=== PATIENT | female | born 1940 | race Caucasian/White ===

== ENCOUNTER 2016-09-07 11:02 | Emergency (ER) | payer MEDICARE ==
[~2016-09-07] VITALS: Ht 165.1 cm; Wt 62.0 kg
[2016-09-07] MEDS ORDERED: SODIUM CHLORIDE 0.9% 1,000 ML IV ONE (11:45)
[2016-09-07] MEDS ORDERED: SODIUM CHLORIDE FLUSH 10ML SYR IVF ONE (12:00)
[2016-09-07 12:18] LABS: BLOOD UREA NITROGEN 17 mg/dL (7-18)
[2016-09-07 12:25] LABS: ASPARTATE AMINO TRANSFERASE 27 U/L (15-37)
[2016-09-07 12:27] LABS: IS PT STATUS REG ER OR PRE ER? YES
[2016-09-07 12:52] VITALS: BP 132/64
== END 2016-09-07 13:32 | disposition home or self-care (01) ==
LOC: ED 13:10
DX: I95.81 Postprocedural hypotension (principal); I10 Essential (primary) hypertension
CPT/HCPCS: 36415; 71010; 80053; 84484; 85025; 85610; 85730; 93005; 96360; 99285; J7030